=== PATIENT | female | born 1950 | race Caucasian/White ===

== ENCOUNTER → 2021-03-30 | Day surgery (SDC) | payer OTHER ==
[~2021-03-30] VITALS: Ht 176.5 cm; Wt 127.5 kg
[~2021-03-30] MED LIST: DAILY VITE1 EACH PO; ELIQUIS5 MG PO; FISH OIL 1,0001 EAC1 PO; HYDROCHLOROTHIA25 MG PO; LOTENSIN10 MG PO; QUIN B STRONG1 EACH PO; SOTALOL80 MG PO; VITAMIN C100 MG PO; VITAMIN D375 MCG PO
[2021-03-30 09:48] LABS: BUN/CREATININE RATIO 23 (0-10)
== END | disposition home or self-care (01) ==
LOC: OR 08:45
PROVIDERS: Orthopaedic Surgery
DX: S52.571A Other intraarticular fracture of lower end of right radius, initial encounter for closed fracture (principal); S52.611A Displaced fracture of right ulna styloid process, initial encounter for closed fracture; I10 Essential (primary) hypertension; I48.91 Unspecified atrial fibrillation; E66.01 Morbid (severe) obesity due to excess calories; Z79.01 Long term (current) use of anticoagulants; Z79.899 Other long term (current) drug therapy; W01.0XXA Fall on same level from slipping, tripping and stumbling without subsequent striking against object, initial encounter
CPT/HCPCS: 36415; 73110; 76000; 80048; 93005; C1713; J0171; J0690; J1100; J2001; J2405; J2704; J2795; J3010; J7030; J7120

== ENCOUNTER → 2021-04-11 | Outpatient (CLI) | payer OTHER | LOC: HEART 5 13:20 | DX: I48.0 Paroxysmal atrial fibrillation (principal); R00.1 Bradycardia, unspecified ==